=== PATIENT | male | born 1980 | race Hispanic/Latino ===

== ENCOUNTER 2016-09-25 15:18 | Emergency (ER) | payer SELFPAY ==
[~2016-09-25] VITALS: Ht 157.5 cm; Wt 102.7 kg
[~2016-09-25 15:18] MED LIST: [UNRECOGNIZED DRUG - REMARK]
[2016-09-25 15:24] VITALS: BP 132/79; RESP 18; O2SAT 98
--- NOTE | 2016-09-25 16:11 | ED.REPORT ---
HPI-Ear Pain/Problem/FB Date of Service Sep 25, 2016 ED Provider: Janelle Dawn MD Patient is a 35 year old male with a history of a cholesteatoma and cornea transplant is referred to the ED from Urgent Care complaining of left ear pain onset four to six weeks ago. He describes the pain as "stabbing" and states that it prevents him from being able to sleep. The patient reports that the pain has been progressively worsening since onset. He has noticed brown liquid discharge from his left ear admits to itching of the ear. He also admits to nausea and ear pain with movement of the ear. The patient denies fever, chills, vomiting, sore throat, rhinorrhea, hearing changes, and respiratory troubles. He also denies extra exposure to moisture. Nursing Notes Stated Complaint: LEFT EAR PAIN Chief Complaint: ENT & Mouth Nursing Notes Reviewed: Yes Allergies: Coded Allergies: No Known Allergies (Verified , 03/27/14) Scheduled ([pain pill]) PRN General Time Seen by MD: 16:11 Chief Complaint Ear problem left Hx Obtained From: Patient, Tsa Screener Arrived By: Walk-in Onset Occurred: More than a week ago... (1 month) Symptom Duration: Since onset Severity: Current: Moderate Severity: Maximum: Moderate Recent Healthcare: No recent hospitalization, Recent doctor visit Similar Sx Previous: Yes Past Medical History Past Medical History cholesteatoma Past Surgical History Left eye repair Right foot repair Cornea transplant Reports: Tonsillectomy Smoking History Never Smoker Social History Other Social History: Good social support, Ambulatory Status Independent Review of Systems Review of Systems Note: denies ear swelling Constitutional: Denies: Chills, Fever Ears / Nose / Throat: Reports: Ear drainage left (brown discharge), Earache left, Denies: Hearing loss left, Nasal congestion, Sore throat Complete sys rev & neg: except as marked. Additional Review of Systems Respiratory: Denies: Non-productive cough, Shortness of breath GI: Reports: Nausea, Denies: Vomiting Skin: Reports Itching (left ear) Physical Exam Initial Vital Signs Vital Signs (First) Date Time Temp Pulse Resp B/P Pulse Ox O2 Delivery O2 Flow Rate FiO2 09/25/16 15:24 36.7 91 18 132/79 98 09/25/16 17:27 Room Air Initial VS: Reviewed, Vital signs normal General/Constitutional: Awake, Alert, No acute distress ENT: Atraumatic, Airway patent, Mucous membranes moist tenderness all around posterior of left ear no swelling of the exterior of the ear white discharge in left ear swelling of the left ear canal Head / Eyes: Atraumatic, Normocephalic, PERRL, EOMI Neck: Atraumatic, Supple, Full range of motion Respiratory / Chest: Atraumatic, Breath sounds NL, Breath sounds = bilat, No respiratory distress Cardiovascular: Heart rate NL, Regular rhythm, Heart sounds NL Skin: Atraumatic, Color NL, No rash, Warm Neurologic: Oriented X3, Speech NL, No motor deficits, No sensory deficits Abdomen: Atraumatic, Soft, Non-tender Back: Atraumatic, Full range of motion Lymphatic: No cervical adenopathy Upper Extremity / MS: Atraumatic, Full range of motion Lower Extremity / Pelvis / MS: Atraumatic, Full range of motion Psychiatric: Affect NL, Mood NL Re-Eval/Medical Decision Med Decision/Clinical Course The patient was sent here for concern for mastoiditis, he appears to have a chronic infection to his external ear. There is no swelling and the patient does not have risk factors for mastoiditis and he has pain in general behind his ear not just the mastoid. I spoke with Dr. Lentz who recommended antibiotic drops and follow-up with ENT next week. The patient does not have insurance and they were told to go back to [place] to see about getting insurance, I explained how important it was for him to see the ENT doctor. Source of Hx: Old records Re-Evaluation/Progress : Time of Eval: 16:33 Patient Status: Condition improved Re-Evaluation/Progress Note: Discussed diagnosis and plan for treatment with the patient during initial interview. The patient understands and agrees with the plan for treatment and discharge. All questions were addressed. Consultation : Referral / Consult Name: Yosvany Lentz MD Consulted With: ENT Call Returned at: 16:42 Development Writer: Will see in office, Agrees with eval, Agrees with plan Note: Consulted with Dr. Lentz regarding patient's case who agrees with the evaluation. Discussed medications and recommends the patient follow up early next week for further evaluation. Counseled Regarding: Diagnosis, Need for follow-up, When/why to return to ED Discharge & Departure Primary Impression: Otitis externa Otitis externa type: unspecified type Laterality: left Chronicity: unspecified Qualified Code: H60.92 - Unspecified otitis externa, left ear Additional Impression: Fungal ear infection Discharge Condition All VS Reviewed: Yes Condition: Stable Patient Instructions: Otitis Externa (ED) Additional Instructions: Call Dr. Lentz's office to arrange an appointment this week. Speak to an insurance sales specialist at [facility] so that they can help you find insurance coverage. Apply each type of the drops every twelve hours. Stagger these so that you are applying alternating drops every six hours. Return to the emergency department if any new or worsening symptoms develop. Referrals: Elie Love MD (PCP) Scribe Attestation Portions of this note were transcribed by Sharron Poole and Willam Kay. I, Dr. Dawn personally performed the history, physical exam and medical decision- making; I reviewed and confirmed the accuracy of the information in the transcribed note. Signed by: Sharron Poole and Willam Kay, Diana, 09/25/16 and [id number]. copies to: Yosvany Lentz MD; Elie Love MD, Jena M MD Sep 25, 2016 16:11 Shona Poole Sep 25, 2016 16:35 WILLAM KAY Sep 25, 2016 17:02
[2016-09-25] MEDS ORDERED: Ciprofloxacin-Dexamethasone 7.5 mL Otic Susp LEFT_EAR ONE (16:50)
[2016-09-25 17:27] VITALS: BP 128/77; PULSE 88; RESP 18; O2SAT 98
== END 2016-09-25 17:30 ==
LOC: SED 15:18
DX: H60.92 Unspecified otitis externa, left ear (principal); B49 Unspecified mycosis

== ENCOUNTER 2017-03-04 17:16 | Emergency (ER) | payer SELFPAY ==
[2017-03-04 17:35] VITALS: BP 161/89; PULSE 103; RESP 18; O2SAT 100
--- NOTE | 2017-03-04 19:36 | ED.REPORT ---
HPI-Psychiatric Illness Date of Service Mar 04, 2017 ED Provider: Gina Tran History of Present Illness: last Tuesday was at the apartment and the alarms were failing. They are blaming him. Lives with Mom. Mom will need to be evicted. feels depressed. [facility] care [facility]. Nursing Notes Stated Complaint: DEPRESSION Chief Complaint: Psychiatric Complaint Nursing Notes Reviewed: Yes Allergies: Coded Allergies: No Known Allergies (Verified , 03/27/14) Scheduled ([pain pill]) PRN General Time Seen by MD: 19:35 Chief Complaint Other (situational stress) Onset Occurred: 1 week ago Risk-Psychiatric Illness Suicide Risk Stratification Suicide Risk Factors - Adult: No: Access to firearms, Alcohol use, Close associate suicide, Family Hx of Suicide, Previous attempt, Prior psych admission , Substance abuse RF Statements: Risk factors reviewed Past Medical History Past Medical History cholesteatoma Past Surgical History Left eye repair Right foot repair Cornea transplant Reports: Tonsillectomy Smoking History Never Smoker Social History Alcohol Use: Denies alcohol use Drug Use: Denies drug use Other Social History: Good social support Occupation lives with Mom, no work or school 03/04/2017 Ambulatory Status Independent Review of Systems Basic Review of Systems Eyes: Vision NL, No discharge Hematologic: No bleeding, No bruising Allergy / Immune: No allergy Physical Exam Initial Vital Signs Vital Signs (First) Date Time Temp Pulse Resp B/P Pulse Ox O2 Delivery O2 Flow Rate FiO2 03/04/17 17:35 36.9 103 18 161/89 100 Room Air Initial VS: Reviewed, Vital signs normal Head / Eyes: Atraumatic, Normocephalic, PERRL ENT: Mucous membranes moist, Conjunctiva normal, No scleral icterus Neck: Supple, Non-tender, Full range of motion Respiratory: Breath sounds normal, Clear to auscultation, No respiratory distress Cardiovascular: Regular rate & rhythm, Heart sounds normal, Intact distal pulses Abdomen / GI: Soft, Non-tender, No guarding, No rebound, No distention Back: No CVA tenderness Lymphatic: No lymphadenopathy Extremities: Vascular intact, Neuro intact, No swelling, No tenderness Skin: Warm, Dry, No cyanosis General/Constitutional: Awake, Alert, No acute distress, Well appearing, Well developed, Well hydrated Neurologic: Oriented X3, Speech NL, No motor deficits Psychiatric: Affect NL, Mood NL, Not suicidal ENT: Atraumatic, Airway patent, Mucous membranes moist, Pharynx NL Respiratory / Chest: Atraumatic, Breath sounds NL, Breath sounds = bilat Cardiovascular: Heart rate NL, Regular rhythm, Heart sounds NL, No gallop Interpretation & Diagnostics Lab Results Interpretation Result Diagram: 03/04/17201303/04/172013 Test 03/04/17 20:14 White Blood Count 7.5th/mm3 (3.8-10.1) Red Blood Count 5.33mil/mm3 (4.40-5.80) Hemoglobin 16.7g/dL (13.8-17.2) Hematocrit 46.6% (41.0-50.0) Mean Corpuscular Volume 87.4fL (81-100) Mean Corpuscular Hemoglobin 31.3pg (27.0-35.0) Mean Corpuscular Hemoglobin Concent 35.8% (32.0-37.0) Red Cell Distribution Width 13.7% (12.3-15.4) Platelet Count 197bil/L (150-400) Neutrophils (%) (Auto) 59.4% (40-74) Lymphocytes (%) (Auto) 30.7% (14-46) Monocytes (%) (Auto) 6.7% (4-12) Eosinophils (%) (Auto) 2.7% (0-5) Basophils (%) (Auto) 0.4% (0-3) Sodium Level 138mEq/L (134-144) Potassium Level 3.1mEq/L (3.5-5.2) Chloride Level 102mEq/L (97-108) Carbon Dioxide Level 19mmol/L (18-29) Blood Urea Nitrogen 10mg/dL (6-20) Creatinine 0.69mg/dL (0.76-1.27) Estimat Glomerular Filtration Rate 139mL/min (>59) Glucose Level 99mg/dL (60-99) Calcium Level 8.5mg/dL (8.5-10.1) Total Bilirubin 0.9mg/dL (0.0-1.2) Aspartate Amino Transf (AST/SGOT) 15U/L (0-50) Alanine Aminotransferase (ALT/SGPT) 20U/L (0-44) Alkaline Phosphatase 77U/L (25-150) Total Protein 6.8g/dL (6.4-8.4) Albumin 4.1g/dL (3.4-5.0) Thyroid Stimulating Hormone (TSH) 0.455uIU/mL (0.450-4.500) Hold Alejandra Top Tube Received (Received) Re-Eval/Medical Decision Med Decision/Clinical Course 36 year old male with concern for evicition after alarms were damaged at the apartment at which he lives. The managers feel it was him. [employer] provided resources he may use to help his situation. No actively SI at this time. Discharge & Departure Impression: Primary Impression: Acute situational disturbance Additional Instructions: I am so sorry that this is happening. Use the resources that [employer] have provided. They have transitional services and legal services and may be able to help. You have contracted for safety and are going home with Mom. I wish you the best! Your labs are normal. Referrals: Elie Love MD (PCP) EDSupervising Provider for APC: Brennan Tijerina MD copies to: Elie Love MD, Sue ARNP Mar 04, 2017 19:36
[2017-03-04 20:24] LABS: BASOPHILS % (AUTO) 0.4 % (0-3); EOSINOPHILS % (AUTO) 2.7 % (0-5); MONOCYTES % (AUTO) 6.7 % (4-12); Mean Corpuscular Hemoglobin 31.3 pg (27.0-35.0); Mean Corpuscular Volume 87.4 fL (81-100); NEUTROPHILS % (AUTO) 59.4 % (40-74); Platelet Count 197 bil/L (150-400)
[2017-03-04 20:37] VITALS: BP 134/88; PULSE 96; RESP 20; O2SAT 98
[2017-03-04 21:29] VITALS: BP 141/96; PULSE 88; RESP 17; O2SAT 98
== END 2017-03-04 21:30 ==
LOC: SED 17:16
DX: F43.0 Acute stress reaction (principal); R45.851 Suicidal ideations